=== PATIENT | female | born 1965 | race Caucasian/White ===

== ENCOUNTER 2022-06-19 15:59 | Day surgery (SDC) | payer BC ==
[2022-06-19] MEDS ORDERED: Cyclopentolate 1% Opth Drop 2 ML BOT ONE (16:11)
[2022-06-19] MEDS ORDERED: Phenylephrine 2.5% Ophth Soln 5 ML BOT ONE (16:11)
[2022-06-19] MEDS ORDERED: Cyclopentolate 1% Opth Drop 2 ML BOT R EYE SCH (16:15)
[2022-06-19] MEDS ORDERED: Phenylephrine 2.5% Ophth Soln 5 ML BOT R EYE SCH (16:15)
[2022-06-19] MEDS ORDERED: EPINEPHrine 0.3 MG in Ophthalmic Irrigation Solution 500 ML IRR SCH (16:15)
[2022-06-19] MEDS ORDERED: Midazolam HCl 2 mg/2 ml Vial ONE (17:50)
[2022-06-19] MEDS ORDERED: fentaNYL Citrate/PF 100 MCG/2 ML SYRINGE ONE (17:51)
[2022-06-19] MEDS ORDERED: Bupivacaine 0.75% 10 ML VIAL ONE (18:13)
[2022-06-19] MEDS ORDERED: Triamcinolone 40 MG/ML VIAL ONE (18:13)
[2022-06-19] MEDS ORDERED: Maxitrol 0.1% Opth Oint 3.5 GM TUBE ONE (18:13)
[2022-06-19] MEDS ORDERED: Lidocaine 1% PF 5 ML VIAL ONE ×2 (18:13)
[2022-06-19] MEDS ORDERED: Lidocaine 4% PF 5 ML AMP ONE (18:13)
[2022-06-19] MEDS ORDERED: PROPOFOL 200 MG/20 ML VIAL ONE (18:13)
[2022-06-19] MEDS ORDERED: CEFAZOLIN 1 GM VIAL ONE (18:13)
== END 2022-06-19 20:15 | disposition home or self-care (01) ==
LOC: SDC 15:59
PROVIDERS: ATTEND Ophthalmology Retina Specialist
PROC: 08T43ZZ Resection of Right Vitreous, Percutaneous Approach (ICD-10-PCS; principal; 2022-06-19)
DX: H33.021 Retinal detachment with multiple breaks, right eye (principal); Z20.822 Contact with and (suspected) exposure to COVID-19
CPT/HCPCS: 67025; 87811; J0171; J0690; J2250; J2704; J3301; J3490